=== PATIENT | female | born 2005 | race Caucasian/White ===

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

== ENCOUNTER 2023-01-10 10:21 | Day surgery (SDC) | payer OTHER, SELFPAY ==
--- NOTE | 2023-01-07 09:47 | HO.ANESPROP2 ---
Documented by User: Irene Young NP 01/07/23 09:48 HPI - Anesthesia Eval Consult details Narrative: 17yo F for Right Cystoscopy, Ureteroroscopy, Retro, Laser,with poss stent exchange s/p cysto 12/31/22 with MAC PMFSH Active Problems Active Problems: All Active Problems (Updated 12/31/22 @ 06:[address] MD) Calculus of proximal right ureter (Acute) Depression (Acute) Dysmenorrhea (Acute) Irregular menses (Acute) Refusal of influenza vaccine by provider (Acute) Past Medical History Medical History (Updated 01/09/23 @ 00:01 by Austin Raman) Irregular menses Dysmenorrhea Family History Family History Mother Anxiety Depression PTSD (post-traumatic stress disorder) Family history of problems with anesthesia: No Surgical History Surgical History (Updated 01/10/23 @ 11:20 by Denise Ramirez RN) Hx of cystoscopy History of Problems with Anesthesia: No Social History Social History Household Members: Family Housing: House Do you presently have visiting nurse or other home services: No Alcohol intake: never Patient Tobacco Use Status: Current everyday Tobacco user Tobacco use type: Cigarette Cigarettes Per Day: 1 Smoked in Last 30 Days: Yes Patient Interested in Nicotine Replacement: No Substance Use Type: Marijuana Substance Use Frequency: Daily Are you DNR?: No Advance Directives: No Advance Directives Information Provided: Yes Nutrition Risks: No Nutritional Risk FDLMP: 12/18/22 Cognitive needs: No Hearing needs: No Vision needs: Yes Meds Allergies Allergy/AdvReac Type Severity Reaction Status Date / Time No Known Allergies Allergy Verified 01/10/23 11:20 [No Known Allergies*] Exam Exam Date and Time: January 07, 2023 0947 Pertinent Lab Results Pertinent Lab Results: Laboratory Tests 12/31/22 03:19 WBC 9.0 Hgb 13.2 Hct 38.2 Plt Count 296 Sodium 138 Potassium 3.5 D Chloride 107 Carbon Dioxide 20 L BUN 12 Creatinine 0.74 Assessment and Plan Assessment Anesthesia Assessment: Chart Reviewed Final Anesthetic Review Family History of Problems with Anesthesia: No History of Problems with Anesthesia: No Documented by User: Gabriela Anderson MD 01/10/23 11:48 PMFSH Past Medical History Medical History (Updated 01/09/23 @ 00:01 by Austin Raman) Irregular menses Dysmenorrhea Family History Family History Mother Anxiety Depression PTSD (post-traumatic stress disorder) Surgical History Surgical History (Updated 01/10/23 @ 11:20 by Denise Ramirez RN) Hx of cystoscopy Social History Social History Household Members: Family Housing: House Do you presently have visiting nurse or other home services: No Alcohol intake: never Patient Tobacco Use Status: Current everyday Tobacco user Tobacco use type: Cigarette Cigarettes Per Day: 1 Smoked in Last 30 Days: Yes Patient Interested in Nicotine Replacement: No Substance Use Type: Marijuana Substance Use Frequency: Daily Are you DNR?: No Advance Directives: No Advance Directives Information Provided: Yes Nutrition Risks: No Nutritional Risk FDLMP: 12/18/22 Cognitive needs: No Hearing needs: No Vision needs: Yes Meds Allergies Allergy/AdvReac Type Severity Reaction Status Date / Time No Known Allergies Allergy Verified 01/10/23 11:20 [No Known Allergies*] Exam Airway Mallampati Class: II TM Dist: >3cm Neck ROM: Full Heart: rrr Lungs: cta Assessment and Plan Assessment Anesthesia Assessment: Anesthesia Plan Discussed Final Anesthetic Review NPO: Yes ASA Class: II Final Preanesthetic Review: No Changes in Pt Med Stat, Meds/Allgs Chart Reviewed and Consent Obtained/Reviewed Patient Risk: Intermediate Procedure Risk: Intermediate Anesthetic Plan Anesthetic Plan: GA Disposition: Standard PACU
[2023-01-10] VITALS (13 sets, daily range): BP systolic 104–144; BP diastolic 47–77; PULSE 61–90; RESP 16–20; TEMP 36.4–36.8; O2SAT 98–100; BMI 31.6
--- NOTE | ~2023-01-10 | FL_ITS ---
CLINICAL INDICATION: Right kidney stone. FINDINGS: Technical assistance and equipment were provided by the Department of Radiology during intraoperative fluoroscopy for intraoperative procedure, possibly stent removal. 5, limited fluoroscopic spot images are submitted. A radiologist was not present during the procedure. Initial image demonstrates the tip of a cystoscope to project over the mid lower pelvis. The distal end of a presumed ureteral stent is seen. The ipsilateral distal ureter appears accessed, and contrast is injected, demonstrating no evidence of hydroureter. Subsequent images demonstrate contrast within nondilated ipsilateral collecting system and proximal ureter. Final images demonstrate a sheath to project over the ipsilateral upper quadrant. The images are available for review on PACS. TOTAL FLUOROSCOPY TIME: 35 seconds. CUMULATIVE DOSE: 7.1 mGy FL/FL guidance in OR IMPRESSION: Technical assistance and equipment provided by the Department of Radiology during intraoperative fluoroscopy, as above. Please see operative report for further details.
[2023-01-10 10:51] LABS: UPreg QC Valid YES; Urine Pregnancy NEGATIVE (NEGATIVE)
[2023-01-10] MEDS: Lactated Ringers 1,000 ML 100 ML IVCONT (10:53)
--- NOTE | 2023-01-10 11:55 | MHC.SHP ---
Pre-Procedural Eval Section A Date of Service: 01/10/23 The patient is an INPATIENT: No Changes since office visit: No Cold of Flu in the past 2 weeks, No New Medical Problems, No Changes in Medication and No Patient answered all questions The History & Physical has been completed within 30 days and I have reviewed it.: No Section B Chief Complaint: Calculus of kidney Details of Present Illness: indwelling right ureteric stent with right renal stone Relevant Family History (Specify if Yes): Yes Relevant Social History: None Present Medications: see Short Stay Collaborative assessment Medical History: No relevant PMH History of Previous Operations: Relevant previous surgery/procedure and date(s) Allergies: Allergies Allergy/AdvReac Type Severity Reaction Status Date / Time No Known Allergies Allergy Verified 01/10/23 11:20 [No Known Allergies*] Review of Systems Sugical H&P ROS: Negative: Constitution, Cardiovascular, Respiratory, Neurological, Psychiatric, Hem-Onc, Allergic/Immunologic, Gastrointestinal, Genitourinary, Musculoskeletal, Integumentary, Endocrine and Eyes/Ears/Nose/Throat Exam Surgical H&P Exam: Normal: HEENT, Normal: Heart, Normal: Lungs, Normal: Extremities, Normal: Abdomen, Normal: Skin and Normal: Neurological Plan Diagnosis/Plan: Unchanged ( cystoscopy, will right stent removal, right ureteroscopy with laser lithotripsy) I have reviewed the history and physical and performed a pertinent physical examination on my patient. No changes have occurred unless specified. Time Spent With Patient Time: Total time managing care of this patient today ____ minutes.
--- NOTE | 2023-01-10 13:15 | P.OP_ITS ---
Operative Note Operative Note Date of Service: 01/10/23 Narrative: PreOperative Diagnosis: Right lower pole renal stone with indwelling stent Post Operative Diagnosis: Right lower pole renal stone with indwelling stent Procedure: - cystoscopy, right retrograde - removal right stent - right dilatation of ureteric orifice under fluoroscopy - right ureteroscopy, laser lithotripsy Surgeon: Dr John Barirentos Anesthesia: General Indications for procedure: Had presented a week ago with right UPJ stone. Stent placed for pain management. Here for definitive stone therapy. Procedure: After informed consent was verified patient was brought to the operating placed in supine position. Anesthesia was administered per protocol. Patient was placed in modified dorsal lithotomy position and prepped and draped in a sterile fashion. Safety pause time-out and side of surgery confirmed. Antibiotics confirmed. 22 [place] cystoscope was inserted per urethra. Bladder was normal in its entirety. Both ureteric orifices were in normal position. Stent emerging from right ureteric orifice. The right ureteric orifice was cannulated and a retrograde examination was performed. Filling defects seen in right renal pelvis consistent with known 8 mm stone. A Sensor guidewire was placed up to the level of the renal pelvis under fluoroscopy. The rigid cystoscope was removed and the inner cannula of ureteric access sheath was used under fluoroscopy to dilate the ureteric orifice. The flexible ureteric access sheath was placed and the inner cannula with access wire removed. The digital flexible ureteral scope was placed. The stone was encountered. Using a 272 micron laser fiber the stone was broken into small pieces. The stone ended up moving into the midpole area. Since we were using the flexible ureter can access sheath the sheath was able to be placed on top of the stone fragments and they were able to be removed with suction via the access sheath into the collection bottle. This was continued until the majority of small pieces had been easy removed. A decision was made not to leave a stent. The bladder was emptied. The patient tolerated the procedure well and was extubated in the operating room, and transferred in stable condition to the recovery area. Pathology: Stones Drains: None
[2023-01-10] MEDS: Phenazopyridine HCL 100 MG TABLET PO (13:33)
[2023-01-10] MEDS: oxyCODONE HCl Immed Release 5 MG TABLET PO (13:34)
[2023-01-10] MEDS: Acetaminophen 325 MG TABLET 975 MG PO (13:34)
[2023-01-10] MEDS: fentaNYL citrate/PF 100 MCG/2 ML VIAL 50 MCG IVPUSH ×2 (14:04→14:25)
[2023-01-13 23:13] LABS: Stone Source KIDNEY STONE
== END 2023-01-10 15:00 | disposition home or self-care (01) ==
PROVIDERS: Nurse Practitioner; Visit Provider Urology
PROC: (CPT 52353; principal; 2023-01-10 12:20)
DX: N20.0 Calculus of kidney (principal); Z96.0 Presence of urogenital implants
CPT/HCPCS: 52353; 81025; 82365; 88300; C1758; C1769; J1100; J1885; J1956; J2250; J2405; J3010; Q9967

== ENCOUNTER → 2023-01-10 10:21 | Outpatient (BNV) | payer OTHER, SELFPAY | PROVIDERS: Visit Provider Urology | DX: N20.0 Calculus of kidney (principal) | CPT/HCPCS: 52353; 74420 ==

== ENCOUNTER 2023-07-15 01:50 | Emergency (ER) | payer OTHER, SELFPAY ==
[2023-07-15 02:02] VITALS: BP 121/62; PULSE 67; RESP 16; TEMP 37; O2SAT 98; BMI 29.0
[2023-07-15 05:26] VITALS: BP 117/55; PULSE 68; RESP 18; TEMP 37; O2SAT 100
--- NOTE | 2023-07-15 05:37 | ED_ITS ---
HPI - Eye Problem General Chief complaint: Eye Problems Stated complaint: eye problems Time Seen by Provider: 07/15/23 05:31 Source: patient Mode of arrival: ambulatory Limitations: no limitations History of Present Illness HPI Narrative: 18 yo female with no sig PMH exposed to pink eye then the next day developed drainage and redness to L eye no change in vision loss from her baseline poor eye sight she does wear contact lens is not wearing them now chief complaint: eye pain and eye redness Onset (ago): day(s) (1) Onset description: gradual Duration: constant Location: left eye Eye Symptoms: redness, pain, itching and discharge Place: school Mechanism: other Severity: moderate If Pain, Quality: burning and aching Context: other (sick contact) Associated symptoms: none Treatments Prior to Arrival: none Related Data Previous Rx's Medication Instructions Recorded naproxen 500 mg tablet 500 mg PO BID PRN pain 7 days #14 12/31/22 tabs oxybutynin chloride 5 mg tablet 5 mg PO BID PRN bladder spasms #14 12/31/22 tabs tamsulosin 0.4 mg capsule 0.4 mg PO BEDTIME 14 days #14 caps 12/31/22 naproxen 500 mg tablet 500 mg PO BID PRN pain 7 days #14 01/10/23 tabs phenazopyridine 100 mg tablet 100 mg PO TID PRN Spasm 4 days #12 01/10/23 (Pyridium) tabs tamsulosin 0.4 mg capsule 0.4 mg PO BEDTIME 14 days #14 caps 01/10/23 tramadol 50 mg tablet 50 mg PO Q6H PRN pain (scale score 01/10/23 1-3) #8 tabs ofloxacin 0.3 % eye drops 1 drp ophthalmic (eye) QID 7 days 07/15/23 #5 mL Allergies Allergy/AdvReac Type Severity Reaction Status Date / Time No Known Allergies Allergy Verified 01/10/23 11:20 [No Known Allergies*] Review of Systems Review of Systems: Constitutional : No Fever, No Chills, No Fatigue ENT/Mouth : No sore throat, No Rhinorrhea Eyes: pos Eye Pain, No Swelling, pos Redness Cardiovascular : No Chest Pain, No SOB, No Dyspnea on Exertion Respiratory : No Cough, No Sputum Gastrointestinal : No Nausea, No Vomiting, No Diarrhea, No abdominal Pain Genitourinary : No Dysuria, No Urinary Frequency, No Hematuria, Musculoskeletal : No joint pain, No Myalgias, No Joint Swelling Skin : No Skin Lesions, No rash Neuro : No Weakness, No Numbness, No Dizziness, positive Headache All other systems reviewed and are negative [facility] Past Medical History Attestation statement: The following information was validated with the patient. Source: old records reviewed Medical History Irregular menses Dysmenorrhea Surgical History Hx of cystoscopy Family History Family History Mother Anxiety Depression PTSD (post-traumatic stress disorder) Social History Social History Household Members: Family Housing: House Do you presently have visiting nurse or other home services: No Alcohol intake: never Patient Tobacco Use Status: Current everyday Tobacco user Tobacco use type: Cigarette Cigarettes Per Day: 1 Smoked in Last 30 Days: No Use of substances other than those prescribed or required for medical reasons: No Substance Use Type: Marijuana Advance Directives: No Advance Directives Information Provided: No Patient : No Cognitive needs: No Hearing needs: No Vision needs: Yes Physical Exam Vital Signs: Vital Signs: Last Vital Signs Temp 98.2 F 07/15/23 06:19 Pulse 68 07/15/23 06:19 Resp 18 07/15/23 06:19 BP 117/55 L 07/15/23 06:19 Pulse Ox 100 07/15/23 06:19 O2 Del Method Room Air 07/15/23 06:19 BMI result Body Mass Index 29.0 Appearance: Alert. Oriented X3. No acute distress. Eyes: Pupils equal, round and reactive to light. no change in vision from baseline, L eye injected with injected sclera and watery discharge no preseptal cellulitis, with fluorscein linear inferior to the iris abrasion noted ENT: Pharynx normal. Neck: Normal inspection. Neck supple. CVS: Pulses normal. Respiratory: No respiratory distress. Abdomen: Soft and nontender. Skin: Skin warm and dry. Normal skin color. Extremities: No lower extremity edema. Neuro: Oriented X 3. No motor deficit. No sensory deficit. Medications Administered Discontinued Medications Generic Name Dose Route Start Last Admin Trade Name Freq PRN Reason Stop Dose Admin Fluorescein Sodium 1 strip 07/15/23 05:49 07/15/23 06:00 Fluorescein Sodium Strip EYE-LEFT 07/15/23 05:50 1 strip ONCE ONE Administration Tetracaine HCl 1 drop 07/15/23 05:49 07/15/23 06:00 Tetracaine Hcl/Pf 0.5% Oph Georgie 4 Ml Drops EYE-LEFT 07/15/23 05:50 1 drop ONCE ONE Administration Medical Decision Making Medical Decision Making MDM Narrative: 18 yo female not toxic here with c/o L eye redness drainage and irritation following exposure to pink eye at this time will start on ofloxacin and stop lens wear she has no vision changes. instruct her to see eye doctor and given return precautions Differential Diagnosis Differential Diagnoses: The differential diagnosis associated with the presentation includes conjunctivitis, FB Prescription Management I considered prescription management with: Antibiotic and Other Discharge Plan Discharge Clinical Impression: Bacterial conjunctivitis, Corneal abrasion Patient Disposition: Home, Self-Care Instructions: Corneal Abrasion (DC), Conjunctivitis (ED) Additional Instructions: no contact lens for 1 week return for worsening pain, vision loss, or any other concerns. please follow up with your eye doctor Prescriptions: New ofloxacin 0.3 % drops 1 drp ophthalmic (eye) QID 7 Days Qty: 5 0RF No Action tramadol 50 mg tablet 50 mg PO Q6H PRN (Reason: pain (scale score 1-3)) Qty: 8 0RF tamsulosin 0.4 mg capsule 0.4 mg PO BEDTIME 14 Days Qty: 14 0RF phenazopyridine [Pyridium] 100 mg tablet 100 mg PO TID PRN (Reason: Spasm) 4 Days Qty: 12 0RF naproxen 500 mg tablet 500 mg PO BID PRN (Reason: pain) 7 Days Qty: 14 0RF tamsulosin 0.4 mg capsule 0.4 mg PO BEDTIME 14 Days Qty: 14 0RF oxybutynin chloride 5 mg tablet 5 mg PO BID PRN (Reason: bladder spasms) Qty: 14 0RF naproxen 500 mg tablet 500 mg PO BID PRN (Reason: pain) 7 Days Qty: 14 0RF Stand Alone Forms: Work/School Release Interventions: ED Discharge Assessment Last Done: 07/15/23 06:19 Discharge Date/Time: 07/15/23 06:00
[2023-07-15] MEDS: Fluorescein Sodium STRIP 1 STRIP EYE-LEFT (06:00)
[2023-07-15] MEDS: Tetracaine HCl/PF 0.5% Oph Sol 4 ML DROPS 1 DROP EYE-LEFT (06:00)
[2023-07-15 06:19] VITALS: BP 117/55; PULSE 68; RESP 18; TEMP 36.8; O2SAT 100
== END 2023-07-15 06:00 | disposition home or self-care (01) ==
PROVIDERS: Emergency Provider Emergency Medicine
DX: S05.02XA Injury of conjunctiva and corneal abrasion without foreign body, left eye, initial encounter (principal); H10.9 Unspecified conjunctivitis; X58.XXXA Exposure to other specified factors, initial encounter; Y93.9 Activity, unspecified; Y92.9 Unspecified place or not applicable; Y99.9 Unspecified external cause status
CPT/HCPCS: 99283; 99284

== ENCOUNTER 2023-12-30 13:55 | Emergency (ER) | payer OTHER, SELFPAY ==
[2023-12-30] VITALS (7 sets, daily range): BP systolic 115–123; BP diastolic 59–75; PULSE 78–109; RESP 14–20; TEMP 37.1–39.4; O2SAT 96–100; BMI 27.3
--- NOTE | ~2023-12-30 | CT_ITS ---
EXAMINATION: CT ABDOMEN AND PELVIS WITHOUT CONTRAST CLINICAL INFORMATION: Question stone COMPARISON: CT abdomen and pelvis 12/31/2022 TECHNIQUE: Multidetector volumetric imaging was performed from the superior aspect of the liver through the pubic symphysis. Sagittal and coronal reformatted images were obtained on the technologist's workstation. This CT examination was performed using dose optimization techniques as appropriate, variously including the following: *Automated exposure control *Adjustment of mA and/or kV according to patient size (this includes techniques or standardized protocols for targeted exams where dose is matched to indication/reason for exam; i.e. extremities or head) *Use of iterative reconstruction technique DLP: 589 mGy-cm FINDINGS: LUNG BASES: Calcified granuloma in the left lung base. ABDOMINAL AND PELVIC WALL: Unremarkable. LIVER AND BILIARY TREE: Unremarkable. GALLBLADDER: Sludge or noncalcified stones layering in the gallbladder. No pericholecystic inflammatory change to suggest acute cholecystitis. PANCREAS: Unremarkable. SPLEEN: Unremarkable. ADRENAL GLANDS: Unremarkable. KIDNEYS AND URETERS: Multiple new nonobstructing right renal stones measuring up to 5 mm in the right upper pole. There is right renal perinephric fat stranding and mild right hydroureter. The ureter was not definitively discerned throughout its entire course limiting assessment however within limitations no ureteral stone is definitively identified. GASTROINTESTINAL TRACT: Colonic diverticulosis. Question of minimal fat stranding in the left lower quadrant adjacent to the descending colon, equivocal for a mild diverticulitis. No perforation or abscess. Appendix is normal in caliber. VASCULAR: Unremarkable. LYMPH NODES/PERITONEUM: No lymphadenopathy. FREE FLUID: None. BLADDER: Tiny mural calcification in the dome of the bladder unchanged. PELVIC VISCERA: Unremarkable. OSSEOUS STRUCTURES: Unremarkable. CT/CT abdomen pelvis wo IV con IMPRESSION: 1. Multiple new nonobstructing right renal stones measuring up to 5 mm in the right upper pole. There is right renal perinephric fat stranding and mild right hydroureter. The ureter was not definitively discerned throughout its entire course limiting assessment though within limitations no ureteral stone is definitively identified, however given the constellation of findings differential considerations could include a nonvisualized obstructing stone, recently passed ureteral stone or ascending urinary tract infection. 2. Colonic diverticulosis. Question of minimal fat stranding in the left lower quadrant adjacent to the descending colon, equivocal for a mild diverticulitis, recommend correlation with clinical symptoms. No perforation or abscess. 3. Sludge or noncalcified stones layering in the gallbladder. No pericholecystic inflammatory change to suggest acute cholecystitis. Electronically signed by: Maggy Wilson MD 12/30/2023 04:24 PM EDT RP
--- NOTE | ~2023-12-30 | XR_ITS ---
EXAMINATION: XR CHEST CLINICAL INFORMATION: Cough COMPARISON: None available. TECHNIQUE: 2 views of the chest were obtained. FINDINGS: The cardiomediastinal silhouette is within normal limits. The lungs are well expanded. There is no focal consolidation, edema, or effusion. No pneumothorax. No acute osseous abnormality. XR/XR chest 2V IMPRESSION: No evidence of acute pulmonary process Electronically signed by: Rodrigue Rubio MD 12/30/2023 03:58 PM EDT RP
--- NOTE | 2023-12-30 14:08 | ED.GENADULT ---
HPI - General Adult General Chief complaint: Urogenital-Female Stated complaint: Kidney infection/fever Time Seen by Provider: 12/30/23 14:39 Related Data Previous Rx's ?Medication ?Instructions ?Recorded naproxen 500 mg tablet 500 mg PO BID PRN pain 7 days #14 12/31/22 tabs oxybutynin chloride 5 mg tablet 5 mg PO BID PRN bladder spasms #14 12/31/22 tabs tamsulosin 0.4 mg capsule 0.4 mg PO BEDTIME 14 days #14 caps 12/31/22 naproxen 500 mg tablet 500 mg PO BID PRN pain 7 days #14 01/10/23 tabs phenazopyridine 100 mg tablet 100 mg PO TID PRN Spasm 4 days #12 01/10/23 (Pyridium) tabs tamsulosin 0.4 mg capsule 0.4 mg PO BEDTIME 14 days #14 caps 01/10/23 tramadol 50 mg tablet 50 mg PO Q6H PRN pain (scale score 01/10/23 1-3) #8 tabs ofloxacin 0.3 % eye drops 1 drp ophthalmic (eye) QID 7 days 07/15/23 #5 mL Allergies Allergy/AdvReac Type Severity Reaction Status Date / Time No Known Allergies Allergy Verified 12/30/23 14:12 [No Known Allergies*] [facility] Past Medical History Medical History Irregular menses Dysmenorrhea Surgical History Hx of cystoscopy Family History Family History Mother Anxiety Depression PTSD (post-traumatic stress disorder) Social History Social History Household Members: Family Housing: House Do you presently have visiting nurse or other home services: No Alcohol intake: never Patient Tobacco Use Status: Current everyday Tobacco user Tobacco use type: Cigarette Cigarettes Per Day: 1 Substance Use Type: Marijuana Cognitive needs: No Hearing needs: No Vision needs: Yes Physical Exam ED Vital Signs: Vital Signs - 24 hr 12/30/23 14:07 Temperature 103.0 F H Pulse Rate 109 H Respiratory Rate 16 Blood Pressure 123/75 Pulse Oximetry 100 Oxygen Delivery Method Room Air BMI result Body Mass Index 27.3 Course Course Course Narrative: This is a Rapid Medical Examination (RME) performed by Dia Strong PA-C in triage. Full HPI, ROS, assessment and treatment plan per primary provider in the Main ED. 18 yo female hx of ureteral calculi here for eval of dysuria and hematuria x2 days. assoc headache and fevers at home. taking tylenol, last dose at 0500 this morning., was seen at for same yesterday. diagnosed w/ UTI however there was concern for kidney infection. prescribed keflex. has not picked up the antibiotic yet. denies abd pain or flank pain. no n/v. + febrile to 103F in triage Plan: labs, UA. motrin given. Reevaluation(s) Reevaluation #1: Please refer to Dr. Matson's completed note regarding patient's visit on 12/30/2023. Medications Administered Discontinued Medications Generic Name Dose Route Start Last Admin Trade Name Freq PRN Reason Stop Dose Admin Ibuprofen 600 mg 12/30/23 14:12 12/30/23 14:14 Ibuprofen 600 Mg Tablet PO 12/30/23 14:13 600 mg ONCE ONE Administration Medical Decision Making Lab Data 12/30/23 14:30 12/30/23 14:30 Labs: Lab Results 12/30/23 12/30/23 Range/Units 14:23 14:30 WBC 16.3 H (4.8-10.8) X10*3/uL RBC 4.71 (4.20-5.50) X10*6/uL Hgb 14.1 (12.0-16.0) g/dl Hct 40.9 (37.0-47.0) % MCV 86.8 (80.0-98.0) fL MCH 29.9 (27.0-33.0) pg MCHC 34.5 (31.0-35.0) g/dl RDW 11.6 (11.0-16.0) % Plt Count 175 D (160-400) X10*3/uL MPV 9.5 (9.4-12.3) fL Urine Color Yellow Urine Appearance Cloudy Urine pH 6.0 (5.0-9.0) Ur Specific [place] 1.020 (1.005-1.025) Urine Protein 30 (1+) H (Neg-Trace) mg/dL Urine Glucose (UA) Negative (Negative) mg/dL Urine Ketones 40 (Negative) mg/dL Urine Blood Small (1+) H (Negative) Urine Nitrite Negative (Negative) Ur Leukocyte Esterase Small (1+) H (Negative) Urine Test NEGATIVE (NEGATIVE) Discharge Plan Discharge Prescriptions: No Action tramadol 50 mg tablet 50 mg PO Q6H PRN (Reason: pain (scale score 1-3)) Qty: 8 0RF tamsulosin 0.4 mg capsule 0.4 mg PO BEDTIME 14 Days Qty: 14 0RF phenazopyridine [Pyridium] 100 mg tablet 100 mg PO TID PRN (Reason: Spasm) 4 Days Qty: 12 0RF naproxen 500 mg tablet 500 mg PO BID PRN (Reason: pain) 7 Days Qty: 14 0RF ofloxacin 0.3 % drops 1 drp ophthalmic (eye) QID 7 Days Qty: 5 0RF tamsulosin 0.4 mg capsule 0.4 mg PO BEDTIME 14 Days Qty: 14 0RF oxybutynin chloride 5 mg tablet 5 mg PO BID PRN (Reason: bladder spasms) Qty: 14 0RF naproxen 500 mg tablet 500 mg PO BID PRN (Reason: pain) 7 Days Qty: 14 0RF Print Language: Bermudian
[2023-12-30] MEDS: Ibuprofen 600 MG TABLET PO (14:14)
[2023-12-30 14:40] LABS: Basophils Percent Auto 0.2 % (0-2); Eosinophils Percent Auto 0.1 % (0-4); Hematocrit 40.9 % (37.0-47.0); Hemoglobin 14.1 g/dl (12.0-16.0); Imm Gran Abs Auto 0.06 X10*3/uL (0.00-0.03); Imm Gran Pct Auto 0.4 % (0.0-0.4); Lymphocytes Absolute Auto 1.9 X10*3/uL (1.2-4.9); Lymphocytes Percent Auto 11.4 % (20-40); Mean Corpuscular HGB Conc 34.5 g/dl (31.0-35.0); Mean Corpuscular Hemoglobin 29.9 pg (27.0-33.0); Mean Corpuscular Volume 86.8 fL (80.0-98.0); Mean Platelet Volume 9.5 fL (9.4-12.3); Monocytes Absolute Auto 1.8 X10*3/uL (0.1-1.2); Monocytes Percent Auto 10.8 % (2-11); Neutrophils Absolute Auto 12.6 x10*3/uL (2.0-8.3); Neutrophils Percent Auto 77.1 % (45-73); Platelet Count 175 X10*3/uL (160-400); Red Blood Count 4.71 X10*6/uL (4.20-5.50); Red Cell Distribution Width 11.6 % (11.0-16.0); SCAN SMEAR FLAG 1; White Blood Count 16.3 X10*3/uL (4.8-10.8)
[2023-12-30 14:42] LABS: UPreg QC Valid YES
[2023-12-30 14:43] LABS: Urine Pregnancy NEGATIVE (NEGATIVE)
[2023-12-30 14:44] LABS: Appearance Urine Cloudy; Color Urine Yellow; Glucose Urine UA Negative (Negative); Leukocyte Esterase Urine Small (1+) (Negative); Nitrite Urine Negative (Negative); UMIC TRIGGER UACC YES; Urine Blood Small (1+) (Negative); Urine Ketones 40 mg/dL (Negative); Urine Protein 30 (1+) mg/dL (Neg-Trace)
--- NOTE | 2023-12-30 14:44 | ED.FEMALEGU ---
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 DENIES ANY VOMITING MD elicited complaint: dysuria and UTI Onset (ago): day(s) (2) Severity: mild Female Urogenital Radiation: Non-Radiating Consistency: constant Vaginal discharge: none Related Data Previous Rx's ?Medication ?Instructions ?Recorded naproxen 500 mg tablet 500 mg PO BID PRN pain 7 days #14 12/31/22 tabs oxybutynin chloride 5 mg tablet 5 mg PO BID PRN bladder spasms #14 12/31/22 tabs tamsulosin 0.4 mg capsule 0.4 mg PO BEDTIME 14 days #14 caps 12/31/22 naproxen 500 mg tablet 500 mg PO BID PRN pain 7 days #14 01/10/23 tabs phenazopyridine 100 mg tablet 100 mg PO TID PRN Spasm 4 days #12 01/10/23 (Pyridium) tabs tamsulosin 0.4 mg capsule 0.4 mg PO BEDTIME 14 days #14 caps 01/10/23 tramadol 50 mg tablet 50 mg PO Q6H PRN pain (scale score 01/10/23 1-3) #8 tabs ofloxacin 0.3 % eye drops 1 drp ophthalmic (eye) QID 7 days 07/15/23 #5 mL acetaminophen 500 mg tablet 1,000 mg (2 x 500 mg) PO Q6H PRN 12/30/23 (Tylenol Extra Strength) fever or pain #20 tabs ibuprofen 400 mg tablet 400 mg PO TID PRN fever or pain 12/30/23 #30 tabs ondansetron 4 mg disintegrating 4 mg PO Q6-8H PRN nausea and 12/30/23 tablet vomiting #14 tabs Allergies Allergy/AdvReac Type Severity Reaction Status Date / Time No Known Allergies Allergy Verified 12/30/23 14:12 [No Known Allergies*] Review of Systems Constitutional: Constitutional: Reports malaise and Reports weakness ENT: Reports system reviewed and no additional complaints, except as documented Respiratory: Respiratory: Reports no additional respiratory complaints Gastrointestinal: Gastrointestinal: Reports no additional gastrointestinal complaints Neurologic: Reports weakness [facility] Past Medical History [facility] Narrative: HISTORY OF KIDNEY STONE Source: unable to obtain Medical History Irregular menses Dysmenorrhea Surgical History Hx of cystoscopy Family History Family History Mother Anxiety Depression PTSD (post-traumatic stress disorder) Social History Social History Household Members: Family Housing: House Do you presently have visiting nurse or other home services: No Alcohol intake: current Alcohol intake frequency: holidays/special occasions only Patient Tobacco Use Status: Current everyday Tobacco user Tobacco use type: Cigarette Cigarettes Per Day: 1 Smoked in Last 30 Days: No Use of substances other than those prescribed or required for medical reasons: Yes Substance Use Type: Marijuana Substance Use Frequency: Daily Advance Directives: No Advance Directives Information Provided: No Patient : No Cognitive needs: No Hearing needs: No Vision needs: Yes Physical Exam Vital Signs: Vital Signs: Last Vital Signs Temp 99.0 F 12/30/23 16:43 Pulse 78 12/30/23 16:43 Resp 20 12/30/23 16:43 BP 115/62 12/30/23 16:43 Pulse Ox 97 12/30/23 16:43 O2 Del Method Room Air 12/30/23 16:43 BMI result Body Mass Index 27.3 SHE LOOKS WELL SHE HAS NOT TAKE TOXIC Const: General: comfortable, no acute distress and well developed Orientation/consciousness: patient oriented x3 HEENT: Head: Yes normal to inspection General nose exam: Normal external nose present Face and sinus: Yes normal facial exam Neck: Neck: Yes normal visual inspection and Yes full ROM Chest: Chest palpation & inspection: normal inspection of the chest Resp: Effort & Inspection: normal respiratory effort Auscultation: clear to auscultation bilaterally Cardio: Jugular venous distension: no JVD Rate: regular rate Rhythm: regular rhythm GI: Inspection: Yes normal to inspection Palpation (GI): Soft to palpation, not firm and nontender Auscultation: normal bowel sounds Skin: General skin exam: no rashes or lesions noted, elasticity normal and turgor normal Lesions: no lesions Rashes: no rashes Neuro: General: patient oriented x3 Cranial nerves: Yes CN's II-XII intact bilaterally Course Reevaluation(s) Reevaluation #1: SIGNED OUT TO DR ARNOLD CT PENDING Additional Reevaluation(s): 12/30/2023 at 19:00 hours,Dr. Jessee Arnold's note: I assumed care of this patient from my colleague, Dr. Matson at 16:00 hours. The patient is a 18-year-old woman who presented to the emergency department for evaluation of 2 days of stabbing left suprapubic pain with pain radiating to her left flank associated with fever and chills. Patient also had frequency and dysuria. She had a temperature as high as 101.5 degrees. She had associated nausea with no vomiting. Patient [place] [id number] your urinalysis was consistent with a urinary tract infection. She does have a history of kidney stones on the right she states that the stones were broken up by our urologist, Dr. Barrientos proximal 1 year ago. She states the pain that she was having on the left is different than the pain that she had secondary to her right kidney stone. Patient was treated with ceftriaxone 1 g IV, ibuprofen 600 mg orally and normal saline x1 L and she was feeling better. On my examination the patient has suprapubic tenderness, left lower quadrant tenderness but no CVA tenderness. She does not appear to be septic or toxic. At this time I do not think that she has pyelonephritis and I think that the CT scanning of right-sided kidney stones with inflammation of the right kidney are not due to an infectious process and are probably chronic. Patient was advised to follow-up with Dr. Barrientos for re-evaluation especially if she gets right-sided pain patient. Patient was seen in urgent care clinic prior to coming to the emergency department and was prescribed cephalexin 500 mg b.i.d. for 10 days and I told her to stay on this medication. She was prescribed ibuprofen 400 mg 3 times a day, Tylenol 1000 mg 3 times a day and Zofran 4 mg ODT every 6-8 hours as needed for nausea and vomiting. Patient was given a work note from the urgent care clinic as well. She was discharged home with printed and verbal instructions and advised to return to the emergency department for symptoms got worse or stopped any new symptoms that are concerning to her. Medications Administered Discontinued Medications Generic Name Dose Route Start Last Admin Trade Name Ashley PRN Reason Stop Dose Admin Sodium Chloride 1,000 mls @ 999 mls/hr 12/30/23 14:45 12/30/23 15:02 Ns IVCONT 12/30/23 15:45 999 mls/hr .Q1H1M JESSICA Administration Ceftriaxone Sodium 1 gm/ 50 mls @ 100 mls/hr 12/30/23 14:47 12/30/23 15:02 Sodium Chloride IV 12/30/23 15:16 100 mls/hr ONCE ONE Administration Ibuprofen 600 mg 12/30/23 14:12 12/30/23 14:14 Ibuprofen 600 Mg Tablet PO 12/30/23 14:13 600 mg ONCE ONE Administration Medical Decision Making Medical Decision Making [facility] Narrative: PATIENT PRESENTED TO THE EMERGENCY DEPARTMENT WITH DYSURIA FEVER POSSIBLE UTI WILL GET LABS ADMINISTER FLUID REASSESS Differential Diagnosis Differential Diagnoses: The differential diagnosis associated with the presentation includes UTI/KIDNEY STONE/UROSEPSIS Lab Data [facility] Lab Attestation statement: I reviewed the patient's lab results. 12/30/23 14:30 12/30/23 14:30 Labs: Lab Results 12/30/23 12/30/23 Range/Units 14:23 14:30 WBC 16.3 H (4.8-10.8) X10*3/uL RBC 4.71 (4.20-5.50) X10*6/uL Hgb 14.1 (12.0-16.0) g/dl Hct 40.9 (37.0-47.0) % MCV 86.8 (80.0-98.0) fL MCH 29.9 (27.0-33.0) pg MCHC 34.5 (31.0-35.0) g/dl RDW 11.6 (11.0-16.0) % Plt Count 175 D (160-400) X10*3/uL MPV 9.5 (9.4-12.3) fL Immature Gran % (Auto) 0.4 (0.0-0.4) % Neut % (Auto) 77.1 H (45-73) % Lymph % (Auto) 11.4 L (20-40) % [place] % (Auto) 10.8 (2-11) % Eos % (Auto) 0.1 (0-4) % Baso % (Auto) 0.2 (0-2) % Lymph # (Auto) 1.9 (1.2-4.9) X10*3/uL [place] # (Auto) 1.8 H (0.1-1.2) X10*3/uL Eos # (Auto) 0.0 (0.0-0.4) X10*3/uL Baso # (Auto) 0.0 (0.0-0.2) X10*3/uL Abs Immat Gran (auto) 0.06 H (0.00-0.03) X10*3/uL Absolute Neuts (auto) 12.6 H (2.0-8.3) x10*3/uL Absolute Nucleated RBC 0.000 (0.0-0.012) X10*3/uL Nucleated RBC % (auto) 0.0 (0.0-0.2) /100WBC Sodium 133 L (135-145) mmol/L Potassium 3.9 (3.3-5.1) mmol/L Chloride 98 (96-108) mmol/L Carbon Dioxide 26 (22-29) mmol/L Anion Gap 13 (12-20) BUN 7 L (9-16) mg/dL Creatinine 0.73 (0.5-1.4) mg/dL Estim Creat Clear Calc 119.6 Estimated GFR > 60 Random Glucose 94 (60-115) mg/dL Lactic Acid 1.1 (0.5-2.0) mmol/L Calcium 10.0 (8.4-10.2) mg/dL Magnesium 2.1 (1.6-2.6) mg/dL Total Bilirubin 0.8 (0.0-1.0) mg/dL AST 16 (5-31) U/L ALT 11 (0-31) U/L Alkaline Phosphatase 72 (39-117) U/L Total Protein 8.4 H (6.5-8.0) g/dL Albumin 4.5 (3.5-5.0) g/dL Urine Color Yellow Urine Appearance Cloudy Urine pH 6.0 (5.0-9.0) Ur Specific [place] 1.020 (1.005-1.025) Urine Protein 30 (1+) H (Neg-Trace) mg/dL Urine Glucose (UA) Negative (Negative) mg/dL Urine Ketones 40 (Negative) mg/dL Urine Blood Small (1+) H (Negative) Urine Nitrite Negative (Negative) Ur Leukocyte Esterase Small (1+) H (Negative) Urine RBC 3-5 H (0-2) /HPF Urine WBC 21-50 H (0-5) /HPF Ur Squamous Epith Cells 6-10 (0-2) /HPF Urine Bacteria 2+ (None Seen) Hyaline Casts 0-2 (0-2) /LPF Urine Test NEGATIVE (NEGATIVE) Influenza Type A (PCR) NEGATIVE (Negative) Influenza Type B (PCR) NEGATIVE (Negative) RSV RNA Qual (PCR) NEGATIVE (Negative) SARS-CoV-2 RNA (RT-PCR) NEGATIVE (Negative) Radiology Impression Discussion of test interpretation with radiology: I have reviewed the radiologist's reading. Radiologist Impression: CT abdomen pelvis wo IV con IMPRESSION: 1. Multiple new nonobstructing right renal stones measuring up to 5 mm in the right upper pole. There is right renal perinephric fat stranding and mild right hydroureter. The ureter was not definitively discerned throughout its entire course limiting assessment though within limitations no ureteral stone is definitively identified, however given the constellation of findings differential considerations could include a nonvisualized obstructing stone, recently passed ureteral stone or ascending urinary tract infection. 2. Colonic diverticulosis. Question of minimal fat stranding in the left lower quadrant adjacent to the descending colon, equivocal for a mild diverticulitis, recommend correlation with clinical symptoms. No perforation or abscess. 3. Sludge or noncalcified stones layering in the gallbladder. No pericholecystic inflammatory change to suggest acute cholecystitis. Electronically signed by: Maggy Wilson MD 12/30/2023 04:24 PM EDT Dictated By: Maggy Wilson MD Prescription Management I considered prescription management with: Pain Medication and Other (Antiemetics) Chronic Conditions Patient?s care impacted by: Other (Kidney stone) Discharge Plan Discharge Clinical Impression: Fever, UTI (urinary tract infection) Patient Disposition: Home, Self-Care Additional Instructions: Your CT scan revealed no abnormalities on your left kidney which is reassuring. If you get severe right-sided pain in your back lower abdomen then you could be passing a kidney stone in you would need to follow-up with Dr. Barrientos or return to the emergency department if he get these symptoms. There is slight swelling of your right kidney but I do not think that this is the cause of your fever or your pain Your symptoms are consistent with a bladder infection infection which may be involving your left kidney. There were kidney stones in your left kidney which is reassuring. Take the Keflex (cephalexin) 500 mg every 12 hours as prescribed by the urgent care clinic. Take ibuprofen 200 mg pills, 2 pills every 6 hours as needed for pain or fever. Take Tylenol (acetaminophen) 500 mg pills, 2 pills every 6 hours as needed for pain or fever. Take Zofran ODT 4 mg pills, 1 pill dissolved in your mouth every 8 hours as needed for nausea and vomiting. Follow-up with your doctor in 2 days. Please return to the emergency department if your symptoms get worse or if you develop any symptoms that are concerning to you. Prescriptions: New acetaminophen [Tylenol Extra Strength] 500 mg tablet 1,000 mg PO Q6H PRN (Reason: fever or pain) Qty: 20 0RF ibuprofen 400 mg tablet 400 mg PO TID PRN (Reason: fever or pain) Qty: 30 0RF ondansetron 4 mg tablet,disintegrating 4 mg PO Q6-8H PRN (Reason: nausea and vomiting) Qty: 14 0RF No Action tramadol 50 mg tablet 50 mg PO Q6H PRN (Reason: pain (scale score 1-3)) Qty: 8 0RF tamsulosin 0.4 mg capsule 0.4 mg PO BEDTIME 14 Days Qty: 14 0RF phenazopyridine [Pyridium] 100 mg tablet 100 mg PO TID PRN (Reason: Spasm) 4 Days Qty: 12 0RF naproxen 500 mg tablet 500 mg PO BID PRN (Reason: pain) 7 Days Qty: 14 0RF ofloxacin 0.3 % drops 1 drp ophthalmic (eye) QID 7 Days Qty: 5 0RF tamsulosin 0.4 mg capsule 0.4 mg PO BEDTIME 14 Days Qty: 14 0RF oxybutynin chloride 5 mg tablet 5 mg PO BID PRN (Reason: bladder spasms) Qty: 14 0RF naproxen 500 mg tablet 500 mg PO BID PRN (Reason: pain) 7 Days Qty: 14 0RF Referrals: John Barrientos MD [Physician] - 2 weeks (Urinary tract infection with left-sided pain, multiple right-sided kidney stones with hydronephrosis, needs follow up) Print Language: Polish
[2023-12-30 15:01] LABS: Bacteria Urine 2+ (None Seen); Hyaline Casts Urine 0-2 /LPF (0-2); UACC Culture Trigger YES; WBC Urine 21-50 /HPF (0-5)
[2023-12-30] MEDS: 0.9 % Sodium Chloride 1,000 ML 999 ML IVCONT (15:02)
[2023-12-30] MEDS: cefTRIAXone sodium 1 GM in 0.9 % Sodium Chloride 50 ML IV (15:02)
[2023-12-30 15:07] LABS: Lactic Acid 1.1 mmol/L (0.5-2.0)
[2023-12-30 15:09] LABS: Alanine Aminotransferase 11 U/L (0-31); Albumin Level 4.5 g/dL (3.5-5.0); Alkaline Phosphatase 72 U/L (39-117); Anion Gap 13 (12-20); Aspartate Amino Transferase 16 U/L (5-31); Bilirubin Total 0.8 mg/dL (0.0-1.0); Blood Urea Nitrogen 7 mg/dL (9-16); Carbon Dioxide 26 mmol/L (22-29); Chloride 98 mmol/L (96-108); Creatinine Clr Calc Pharmacy 119.6; Estimated Glomerular Filt Rate > 60; Glucose Random 94 mg/dL (60-115); Magnesium 2.1 mg/dL (1.6-2.6); Potassium 3.9 mmol/L (3.3-5.1); Sodium 133 mmol/L (135-145); Total Protein 8.4 g/dL (6.5-8.0)
[2023-12-30 15:20] LABS: Influenza A PCR NEGATIVE (Negative); Influenza B PCR NEGATIVE (Negative); Resp Syncy Virus RNA Qual PCR NEGATIVE (Negative); SARS COV2 PCR INHOUSE NEGATIVE (Negative)
[2023-12-30 15:24] LABS: MANUAL DIFF FLAG NO
== END 2023-12-30 19:15 | disposition home or self-care (01) ==
PROVIDERS: Physician Assistant Medical; Emergency Provider Emergency Medicine Emergency Medical Services
DX: R50.9 Fever, unspecified (principal); N39.0 Urinary tract infection, site not specified; B95.8 Unspecified staphylococcus as the cause of diseases classified elsewhere; F17.210 Nicotine dependence, cigarettes, uncomplicated; F12.90 Cannabis use, unspecified, uncomplicated; Z03.818 Encounter for observation for suspected exposure to other biological agents ruled out
CPT/HCPCS: 0241U; 36415; 71046; 74176; 80053; 81001; 81025; 83605; 83735; 85025; 87040; 87086; 87088; 87186; 96365; 96366; 99284; 99285; J0696

== ENCOUNTER 2024-01-05 10:47 | Outpatient (AMB) | payer OTHER, SELFPAY ==
--- NOTE | 2024-01-05 11:18 | MHC.OFFVIS ---
Intake Visit Reasons: nephrolithiasis with mild hydroureter Intake Note: Patient is present for [facility] Follow up Urology Med: None Antibiotic Allergy: None Blood Thinner: None Patient was at [facility] 12/29 for Kidney stones/Hydronephrosis/UTI Patient was treated with Macrobid Mulitple stones was seen on imaging and Hydronephrosis Accompanied by: Self / Same As Patient Allergies No Known Allergies [No Known Allergies*] Allergy (Verified 01/05/24 11:20) HPI Comments Details: Dodie is a pleasant female. She is seen for the following urologic conditions - nephrolithiasis Recent presentation with pyelonephritis Three-month follow-up renal ultrasound nurse-practitioner Microbiology reviewed - Staphylococcus saprophyticus Bactrim sensitive Prescription provided Nephrolithiasis Initial intervention 01/19/2023 Recent re presentation with elevated white count Imaging - 12/23 Multiple new nonobstructing right renal stones measuring up to 5 mm in the right upper pole. There is right renal perinephric fat stranding and mild right hydroureter. The ureter was not definitively discerned throughout its entire course limiting assessment however within limitations no ureteral stone is definitively identified [facility] Medical History Irregular menses Dysmenorrhea Surgical History Hx of cystoscopy Family History Mother Anxiety Depression PTSD (post-traumatic stress disorder) Social History Household Members: Family Both parents involved: No Housing: House Do you presently have visiting nurse or other home services: No Alcohol intake: current Alcohol intake frequency: holidays/special occasions only Patient Tobacco Use Status: Current everyday Tobacco user Tobacco use type: Cigarette Cigarettes Per Day: 1 Substance Use Type: Marijuana Cognitive needs: No Hearing needs: No Vision needs: Yes Review of Systems Const Denies chills and Denies fever(s) Card Reports no additional complaints and Denies syncope Resp Denies cough GI Denies abdominal pain and Denies heartburn Reports as per HPI and Denies change in libido Neuro Denies syncope Psych Denies change in libido Endo Denies change in libido Physical Exam Const General: cooperative, healthy appearing, comfortable and no acute distress Orientation/consciousness: patient oriented x3 HEENT Face and sinus: Yes normal facial exam Mouth: moist mucous membranes Neck Neck: Yes normal visual inspection, Yes full ROM and Yes trachea midline Chest Chest palpation & inspection: normal inspection of the chest Resp Effort & Inspection: normal respiratory effort, able to speak in complete sentences and no respiratory distress GI Inspection: Yes normal to inspection Back/Spine/Pelvis Cervical Spine: normal cervical lordosis Thoracic/Lumbar Spine: thoracic and lumbar spine normal to inspection Skin General skin exam: no rashes or lesions noted Neuro General: patient oriented x3, gait normal, tone normal and moves all extremities Extrem General: Yes normal to inspection and Yes capillary refill normal Assessment & Plan Assessment & Plan (1) Complicated urinary tract infection: Code(s): N39.0 - Urinary tract infection, site not specified Category: Medical Plan Three-month follow-up renal ultrasound Orders: Orders US renal BI 3 Months N20.1 - Calculus of ureter Medications: New sulfamethoxazole-trimethoprim 800-160 mg (Bactrim DS) 1 tab PO BID 14 days 28 tabs 0RF N20.1 - Calculus of ureter, N39.0 - Urinary tract infection, site not specified Patient Instructions: Imaging studies, laboratory and physical exam results were discussed and reviewed in detail. No major barriers to patient understanding were identified. An opportunity to ask questions regarding the treatment plan was provided. All questions were answered. The patient expressed understanding and agreement with the above treatment plan. The patient is aware they should contact our office by phone for worsening of their current condition or the appearance of new urologic symptoms. Compliance is encouraged with any medications and followup testing that is ordered. It is a privilege to participate in the urologic care of your patient. If you have any questions or concerns regarding treatment for the above conditions, or other urologic issues, please do not hesitate to contact me. The office telephone contact is [phone]. This note is constructed using voice recognition software. While every effort has been made to ensure accuracy catering coordinator errors may have been included. Yours sincerely, Dr John Barrientos MD, [facility] - Urology Providers of Expert, Compassionate Care for the Genitourinary System Coding Level of Care Code Est Pt Level 4 (17432) Diagnoses Complicated urinary tract infection N39.0
== END 2024-01-05 11:48 | disposition home or self-care (01) ==
PROVIDERS: Visit Provider Urology
DX: N39.0 Urinary tract infection, site not specified (principal)
CPT/HCPCS: 99214

== ENCOUNTER → 2024-01-05 10:47 | Outpatient (BNVA) | payer OTHER, SELFPAY | PROVIDERS: Visit Provider Urology | DX: N39.0 Urinary tract infection, site not specified (principal); N20.0 Calculus of kidney | CPT/HCPCS: 99212 ==

== ENCOUNTER 2024-04-17 07:12 | Emergency (ER) | payer OTHER, SELFPAY ==
--- OUTSIDE RECORDS SUMMARY | 2024-04-17 07:14 | XMS_ITS | Continuity of Care Document ---
Author Organization [facility] vices Address [address] [place] [address] Phone Care Team Providers Care Body Former Name Role Phone Unavailable Unavailable Unavailable Allergies, Adverse Reactions, Alerts Substance Reaction Status Criticality No Known Allergies Active No Inform ation Medications Medication Instructions Dosage Effective Dates (start - stop) Status Comments ALBUTEROL SULFATE HFA (unknown strength) Not Available - Active Procedures Procedure Date REFRACTION EYE EXAM, NEW PATIENT OFFICE/OUTPATIENT VISIT, [facility] Advance Directives Directive Yes / No Effective Date File Name No Information Encounters Encounter Description Practice Location Reason(s) For Visit Diagnoses Date Provider Providers Copied on Encounter [facility], [address] [place], [place], [facility], tel:[phone] [facility] Optometry a comprehensive exam (chief complaint)a comprehensive exam (chief complaint) Myopia No Information OFFICE/OUTPA TIENT VISIT, [facility], [address] [place], [place], [facility], tel:[phone] [facility] Pediatrics est PCP (chief complaint) Encounter for administrativ e purpose Sylvain Boothe. [address] [facility], [id number] [address] [place] [address], [facility], . tel:[phone] Family History Family Member Type Diagnosis Age At Onset Problem (finding) Family history of hyper tension Problem (finding) Family history of diabetes mellitus type 1 Payers Payer name Insurance type Covered republican ID Authoriza tion(s) LYDIA Franco [id number] Social History Type Description Quantity Date Captured Comments Alcohol Use Details Unknown Caffeine Use Details Unknown Tobacco Use Status Never smoked tobacco 2014 Smoking Status Never smoker Non-Smoking Tobacco Use Details : No Details Available : No Details Available Sex Female Chief Complaint And Reason For Visit From encounter dated '11/14/2014 09:00'. a comprehensive exam (chief complaint). Description: The 9 years 7 months old female presents for evaluation of a comprehensive exam. VA is blurry. Pt JAREN was 2 yrs ago. Pt not seeing well out of current Rx.Denies any ocular dicomfort. a comprehensive exam (chief complaint) Reason For Referral Reason For Referral No Information History Of Present Illness Encounter Date Complaint History Of Prese nt Illness a comprehensive exam The 9 year s 7 months old female presents for evaluation of a comprehensive exam. VA is blurry. Pt JAREN was 2 yrs ago. Pt not seeing well out of current Rx.Denies any ocular dicomfort. est PCP Pt here to areli sen a new PCP. She was previously seen in [place], [facility] records not available today, mom will bring for PE. Per mom, pt has been healthy, no surgeries or hospitalizations. Intermittent asthma, uses albuterol prn but very infrequently, hasn't used in multiple months. She has no allergies and takes no current daily meds. She has been complaining over the past few months of lower abdominal cramping, headaches, low back pain. No menarche yet, mom was 12 when she started her period. No other concerns today Functional Status Date Functional Assessmen t No Information Instructions Date Instruction Additional Infor evangelina - Return in 1 year w jonnie Bolivar for Complete Exam Related to Myopia Assessments Type Assessment Date assessment Myopia Patient Care Teams Name Effective Dates (start - stop) Status Members No Information
[2024-04-17 07:22] VITALS: BP 119/73; PULSE 107; RESP 18; TEMP 36.7; O2SAT 97; BMI 27.5
--- OUTSIDE RECORDS SUMMARY | 2024-04-17 07:51 | XMS_ITS | Continuity of Care Document ---
Author Organization [facility] vices Address [address] [place] [address] Phone Care Team Providers Care Steel Pickler Name Role Phone Unavailable Unavailable Unavailable Allergies, Adverse Reactions, Alerts Substance Reaction Status Criticality No Known Allergies Active No Inform ation Medications Medication Instructions Dosage Effective Dates (start - stop) Status Comments ALBUTEROL SULFATE HFA (unknown strength) Not Available - Active Procedures Procedure Date REFRACTION EYE EXAM, NEW PATIENT OFFICE/OUTPATIENT VISIT, [facility] Advance Directives Directive Yes / No Effective Date File Name No Information Encounters Encounter Description Practice Location Reason(s) For Visit Diagnoses Date Provider Providers Copied on Encounter [facility], [address] [place], [place], [facility], tel:[phone] [facility] Optometry a comprehensive exam (chief complaint)a comprehensive exam (chief complaint) Myopia No Information OFFICE/OUTPA TIENT VISIT, [facility], [address] [place], [place], [facility], tel:[phone] [facility] Pediatrics est PCP (chief complaint) Encounter for administrativ e purpose Sylvain Boothe. [address] [facility], [id number] [address] [place] [address], [facility], . tel:[phone] Family History Family Member Type Diagnosis Age At Onset Problem (finding) Family history of hyper tension Problem (finding) Family history of diabetes mellitus type 1 Payers Payer name Insurance type Covered democrat ID Authoriza tion(s) LYDIA Franco [id number] Social History Type Description Quantity Date Captured [...] new PCP. She was previously seen in [place], [facility] records not available today, mom will bring [...]
[2024-04-17 07:55] LABS: MANUAL DIFF FLAG NO
[2024-04-17 07:59] LABS: Basophils Percent Auto 0.2 % (0-2); Eosinophils Percent Auto 0.5 % (0-4); Hematocrit 41.5 % (37.0-47.0); Hemoglobin 14.4 g/dl (12.0-16.0); Imm Gran Abs Auto 0.03 X10*3/uL (0.00-0.03); Imm Gran Pct Auto 0.4 % (0.0-0.4); Lymphocytes Absolute Auto 2.2 X10*3/uL (1.2-4.9); Lymphocytes Percent Auto 25.6 % (20-40); Mean Corpuscular HGB Conc 34.7 g/dl (31.0-35.0); Mean Corpuscular Hemoglobin 29.3 pg (27.0-33.0); Mean Corpuscular Volume 84.3 fL (80.0-98.0); Mean Platelet Volume 8.3 fL (9.4-12.3); Monocytes Absolute Auto 0.9 X10*3/uL (0.1-1.2); Monocytes Percent Auto 10.1 % (2-11); Neutrophils Absolute Auto 5.3 x10*3/uL (2.0-8.3); Neutrophils Percent Auto 63.2 % (45-73); Platelet Count 277 X10*3/uL (160-400); Red Blood Count 4.92 X10*6/uL (4.20-5.50); White Blood Count 8.4 X10*3/uL (4.8-10.8)
[2024-04-17 08:15] LABS: Appearance Urine Cloudy; Color Urine Yellow; Glucose Urine UA Negative (Negative); Leukocyte Esterase Urine Small (1+) (Negative); Nitrite Urine Negative (Negative); Specific Gravity - Urine >= 1.030 (1.005-1.025); UMIC TRIGGER UA YES; Urine Blood Negative (Negative); Urine Ketones Trace mg/dL (Negative); Urine Protein Trace mg/dL (Neg-Trace)
[2024-04-17 08:16] LABS: UPreg QC Valid YES; Urine Pregnancy NEGATIVE (NEGATIVE)
[2024-04-17 08:17] LABS: Anion Gap 14 (12-20); Blood Urea Nitrogen 11 mg/dL (9-16); Calcium 9.6 mg/dL (8.4-10.2); Carbon Dioxide 25 mmol/L (22-29); Chloride 104 mmol/L (96-108); Creatinine Clr Calc Pharmacy 120.6; Estimated Glomerular Filt Rate > 60; Glucose Random 92 mg/dL (60-115); Potassium 3.8 mmol/L (3.3-5.1); Sodium 139 mmol/L (135-145)
[2024-04-17 08:19] VITALS: BP 114/64; PULSE 68; RESP 16; O2SAT 98
[2024-04-17 08:20] LABS: Bacteria Urine Trace (None Seen); Hyaline Casts Urine 0-2 /LPF (0-2); RBC Urine 0-2 /HPF (0-2)
--- NOTE | 2024-04-17 08:51 | ED_ITS ---
HPI - Nausea/Vomiting/Diarrhea General Chief complaint: Nausea/Vomiting/Diarrhea Stated complaint: Vomiting/body pain Time Seen by Provider: 04/17/24 08:48 Source: patient Mode of arrival: ambulatory Limitations: no limitations History of Present Illness ED Provider: Dr. Jessee Saavedra HPI Narrative: 19-year-old female with a history of urinary tract infection and renal stones who presents emergency department for evaluation of nausea, vomiting, diarrhea, myalgias, arthralgias and weakness times 3 days. Patient states that she was had 5-6 episodes of vomiting and 5-6 episodes of diarrhea per day for the last 2 days. She denies any blood in the emesis or diarrhea. She states that she was not been able to eat or drink secondary to these symptoms. She states that she was had no vomiting or diarrhea today but has persistent nausea. She states she was feeling weak. She also states she has neck pain and pain in both of her arms that she describes as a nerve pain. Patient had subjective fever and chills at home. She was complaining of a headache as well. 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 Related Data Previous Rx's ?Medication ?Instructions ?Recorded naproxen 500 mg tablet 500 mg PO BID PRN pain 7 days #14 12/31/22 tabs oxybutynin chloride 5 mg tablet 5 mg PO BID PRN bladder spasms #14 12/31/22 tabs tamsulosin 0.4 mg capsule 0.4 mg PO BEDTIME 14 days #14 caps 12/31/22 naproxen 500 mg tablet 500 mg PO BID PRN pain 7 days #14 01/10/23 tabs phenazopyridine 100 mg tablet 100 mg PO TID PRN Spasm 4 days #12 01/10/23 (Pyridium) tabs tamsulosin 0.4 mg capsule 0.4 mg PO BEDTIME 14 days #14 caps 01/10/23 tramadol 50 mg tablet 50 mg PO Q6H PRN pain (scale score 01/10/23 1-3) #8 tabs ofloxacin 0.3 % eye drops 1 drp ophthalmic (eye) QID 7 days 07/15/23 #5 mL acetaminophen 500 mg tablet 1,000 mg (2 x 500 mg) PO Q6H PRN 12/30/23 (Tylenol Extra Strength) fever or pain #20 tabs ibuprofen 400 mg tablet 400 mg PO TID PRN fever or pain 12/30/23 #30 tabs ondansetron 4 mg disintegrating 4 mg PO Q6-8H PRN nausea and 12/30/23 tablet vomiting #14 tabs nitrofurantoin macrocrystal 100 mg 100 mg PO BID 5 days #10 caps 01/04/24 capsule sulfamethoxazole 800 1 tab PO BID 14 days #28 tabs 01/05/24 mg-trimethoprim 160 mg tablet (Bactrim DS) ondansetron 4 mg disintegrating 4 mg PO Q6-8H PRN nausea and 04/17/24 tablet vomiting #14 tabs Allergies Allergy/AdvReac Type Severity Reaction Status Date / Time No Known Allergies Allergy Verified 04/17/24 07:25 [No Known Allergies*] Review of Systems 2 Review of Systems: Yes all other systems are reviewed and are negative [facility] Past Medical History [facility] Narrative: Social history: She denies tobacco and alcohol use. She does smoke marijuana 1-2 times per day. Medical History Irregular menses Dysmenorrhea Surgical History Hx of cystoscopy Family History Family History Mother Anxiety Depression PTSD (post-traumatic stress disorder) Social History Social History Household Members: Family Housing: House Do you presently have visiting nurse or other home services: No Alcohol intake: current Alcohol intake frequency: holidays/special occasions only Patient Tobacco Use Status: Current everyday Tobacco user Tobacco use type: Cigarette Cigarettes Per Day: 1 Substance Use Type: Marijuana Advance Directives: Yes Advance Directives Information Provided: Yes Advance Directives on File: No Do you have a plan to hurt others: No Plan Cognitive needs: No Hearing needs: No Vision needs: Yes Physical Exam 2 Vital Signs: Vital Signs: Last Vital Signs Temp 98.1 F 04/17/24 07:22 Pulse 69 04/17/24 10:10 Resp 16 04/17/24 10:10 BP 112/57 L 04/17/24 10:10 Pulse Ox 99 04/17/24 10:10 O2 Del Method Room Air 04/17/24 10:10 BMI result Body Mass Index 27.5 Vital signs were normal Exam: General: Awake, alert in no distress Head: Normocephalic, atraumatic EENT: PERRL, Lids normal, sclera normal, conjunctiva normal, nose normal , ears normal, throat without erythema or exudates Neck: Supple, she was able to move her head from [id number] in touch her chin to her chest without any difficulty, no adenopathy Lung: breath sounds symmetric, no wheezing, rales or rhonchi Chest: symmetric movement, nontender Heart: regular rate and rhythm, normal S1, S2 no murmurs or rubs Abdomen: soft, non-tender, nondistended, normal bowel sounds Back: no vertebral tenderness, no CVAT Extremities: no deformities, moves all extremities symmetrically Neuro: Awake, alert, oriented, normal speech, cranial nerves intact, moves all extremities symmetrically Psych: Pleasant, cooperative Medications Administered Discontinued Medications Generic Name Dose Route Start Last Admin Trade Name Freq PRN Reason Stop Dose Admin Sodium Chloride 1,000 mls @ 999 mls/hr 04/17/24 09:05 04/17/24 09:23 Ns IV 04/17/24 10:05 999 mls/hr .Q1H1M STA Administration Ketorolac Tromethamine 15 mg 04/17/24 09:05 04/17/24 09:22 Ketorolac Tromethamine 15 Mg/Ml Vial IVPUSH 04/17/24 09:06 15 mg ONCE STA Administration Ondansetron HCl 4 mg 04/17/24 09:05 04/17/24 09:22 Ondansetron Hcl 4 Mg/2 Ml Vial IVPUSH 04/17/24 09:06 4 mg ONCE ONE Administration Medical Decision Making Medical Decision Making MDM Narrative: 19-year-old female with a history of urinary tract infection and renal stones who presents emergency department for evaluation of nausea, vomiting, diarrhea, myalgias, arthralgias and weakness times 3 days. Patient has had 5-6 episodes of vomiting diarrhea per day with no blood in the emesis or diarrhea. Patient was had very poor oral intake secondary to her symptoms. Vital signs were normal. Physical examination was unremarkable, her neck is supple with no meningeal signs. Differential diagnosis: ?Includes but is not limited to gastroenteritis, viral syndrome, viral meningitis, anemia, electrolyte abnormalities, dehydration, COVID-19, influenza, RSV Following evaluation was ordered: CBC, BNP, LFTs, lipase, urinalysis, urine test, COVID-19, influenza, RSV Patient was initially treated with the following: Normal saline x1 L IV, Toradol 15 mg IV, Zofran 4 mg IV Course: Lab Data MDM Lab Attestation statement: I reviewed the patient's lab results. My independent interpretation patient's laboratory evaluation is as follows: CBC was normal. CMP was normal. 04/17/24 07:47 04/17/24 07:47 Labs: Lab Results 04/17/24 04/17/24 04/17/24 Range/Units 07:41 07:47 07:57 WBC 8.4 (4.8-10.8) X10*3/uL RBC 4.92 (4.20-5.50) X10*6/uL Hgb 14.4 (12.0-16.0) g/dl Hct 41.5 (37.0-47.0) % MCV 84.3 (80.0-98.0) fL MCH 29.3 (27.0-33.0) pg MCHC 34.7 (31.0-35.0) g/dl RDW 12.0 (11.0-16.0) % Plt Count 277 D (160-400) X10*3/uL MPV 8.3 L (9.4-12.3) fL Immature Gran % (Auto) 0.4 (0.0-0.4) % Neut % (Auto) 63.2 (45-73) % Lymph % (Auto) 25.6 (20-40) % [place] % (Auto) 10.1 (2-11) % Eos % (Auto) 0.5 (0-4) % Baso % (Auto) 0.2 (0-2) % Lymph # (Auto) 2.2 (1.2-4.9) X10*3/uL [place] # (Auto) 0.9 (0.1-1.2) X10*3/uL Eos # (Auto) 0.0 (0.0-0.4) X10*3/uL Baso # (Auto) 0.0 (0.0-0.2) X10*3/uL Abs Immat Gran (auto) 0.03 (0.00-0.03) X10*3/uL Absolute Neuts (auto) 5.3 (2.0-8.3) x10*3/uL Absolute Nucleated RBC 0.000 (0.0-0.012) X10*3/uL Nucleated RBC % (auto) 0.0 (0.0-0.2) /100WBC Sodium 139 (135-145) mmol/L Potassium 3.8 (3.3-5.1) mmol/L Chloride 104 (96-108) mmol/L Carbon Dioxide 25 (22-29) mmol/L Anion Gap 14 (12-20) BUN 11 (9-16) mg/dL Creatinine 0.72 (0.5-1.4) mg/dL Estim Creat Clear Calc 120.6 Estimated GFR > 60 Random Glucose 92 (60-115) mg/dL Calcium 9.6 (8.4-10.2) mg/dL Total Bilirubin 0.3 (0.0-1.0) mg/dL Direct Bilirubin 0.1 (0.0-0.5) mg/dL AST 24 (5-31) U/L ALT 12 (0-31) U/L Alkaline Phosphatase 73 (39-117) U/L Total Protein 7.6 (6.5-8.0) g/dL Albumin 4.2 (3.5-5.0) g/dL Lipase 17 (8-78) U/L Urine Color Yellow Urine Appearance Cloudy Urine pH 6.0 (5.0-9.0) Ur Specific [place] >= 1.030 H (1.005-1.025) Urine Protein Trace (Neg-Trace) mg/dL Urine Glucose (UA) Negative (Negative) mg/dL Urine Ketones Trace (Negative) mg/dL Urine Blood Negative (Negative) Urine Nitrite Negative (Negative) Ur Leukocyte Esterase Small (1+) H (Negative) Urine RBC 0-2 (0-2) /HPF Urine WBC 11-20 H (0-5) /HPF Ur Squamous Epith Cells 6-10 (0-2) /HPF Urine Bacteria Trace (None Seen) Hyaline Casts 0-2 (0-2) /LPF Urine Test NEGATIVE (NEGATIVE) Influenza Type A (PCR) NEGATIVE (Negative) Influenza Type B (PCR) NEGATIVE (Negative) RSV RNA Qual (PCR) NEGATIVE (Negative) SARS-CoV-2 RNA (RT-PCR) NEGATIVE (Negative) Discharge Plan Discharge Clinical Impression: Viral syndrome, Nausea & vomiting, Diarrhea, Acute dehydration Patient Disposition: Home, Self-Care Instructions: Viral Syndrome (ED) Additional Instructions: Your blood work was normal. Your COVID-19, influenza and RSV tests were negative. Your symptoms are consistent with a viral infection. Take Zofran ODT 4 mg pills, 1 pill dissolved in your mouth every 8 hours as needed for nausea and vomiting. For diarrhea I want you to take Imodium 2 mg pills. ?Take 2 pills after the 1st loose, diarrheal stool then 1 pill after each loose, diarrheal stool up to 8 pills per day. ?This usually stops diarrhea within 24 hours. Take ibuprofen 200 mg pills, 2 pills every 6 hours as needed for pain or fever. Take Tylenol (acetaminophen) 500 mg pills, 2 pills every 6 hours as needed for pain or fever. For the next 24 hours, stay on a PRASAD diet (bananas, rice, applesauce, tea and toast). Follow-up with your doctor in 2 days. Please return to the emergency department if your symptoms get worse or if you develop any symptoms that are concerning to you. Please see work note Prescriptions: New ondansetron 4 mg tablet,disintegrating 4 mg PO Q6-8H PRN (Reason: nausea and vomiting) Qty: 14 0RF No Action tramadol 50 mg tablet 50 mg PO Q6H PRN (Reason: pain (scale score 1-3)) Qty: 8 0RF tamsulosin 0.4 mg capsule 0.4 mg PO BEDTIME 14 Days Qty: 14 0RF phenazopyridine [Pyridium] 100 mg tablet 100 mg PO TID PRN (Reason: Spasm) 4 Days Qty: 12 0RF naproxen 500 mg tablet 500 mg PO BID PRN (Reason: pain) 7 Days Qty: 14 0RF ofloxacin 0.3 % drops 1 drp ophthalmic (eye) QID 7 Days Qty: 5 0RF acetaminophen [Tylenol Extra Strength] 500 mg tablet 1,000 mg PO Q6H PRN (Reason: fever or pain) Qty: 20 0RF ibuprofen 400 mg tablet 400 mg PO TID PRN (Reason: fever or pain) Qty: 30 0RF ondansetron 4 mg tablet,disintegrating 4 mg PO Q6-8H PRN (Reason: nausea and vomiting) Qty: 14 0RF nitrofurantoin macrocrystal 100 mg capsule 100 mg PO BID 5 Days Qty: 10 0RF Rx Instructions: must administer with a meal/food tamsulosin 0.4 mg capsule 0.4 mg PO BEDTIME 14 Days Qty: 14 0RF oxybutynin chloride 5 mg tablet 5 mg PO BID PRN (Reason: bladder spasms) Qty: 14 0RF naproxen 500 mg tablet 500 mg PO BID PRN (Reason: pain) 7 Days Qty: 14 0RF sulfamethoxazole-trimethoprim [Bactrim DS] 800-160 mg tablet 1 tab PO BID 14 Days Qty: 28 0RF Stand Alone Forms: Work/School Release Print Language: Serbian
[2024-04-17 09:16] LABS: Influenza A PCR NEGATIVE (Negative); Influenza B PCR NEGATIVE (Negative); Resp Syncy Virus RNA Qual PCR NEGATIVE (Negative); SARS COV2 PCR INHOUSE NEGATIVE (Negative)
[2024-04-17] MEDS: ondansetron HCL 4 MG/2 ML VIAL IVPUSH (09:22)
[2024-04-17] MEDS: Ketorolac Tromethamine 15 MG/ML VIAL IVPUSH (09:22)
[2024-04-17] MEDS: 0.9 % Sodium Chloride 1,000 ML 999 ML IV (09:23)
[2024-04-17 09:33] LABS: Alanine Aminotransferase 12 U/L (0-31); Albumin Level 4.2 g/dL (3.5-5.0); Alkaline Phosphatase 73 U/L (39-117); Aspartate Amino Transferase 24 U/L (5-31); Bilirubin Direct 0.1 mg/dL (0.0-0.5); Bilirubin Total 0.3 mg/dL (0.0-1.0); Lipase 17 U/L (8-78); Total Protein 7.6 g/dL (6.5-8.0)
[2024-04-17 10:10] VITALS: BP 112/57; PULSE 69; RESP 16; O2SAT 99
--- NOTE | 2024-04-17 10:44 | PC.NURSE ---
Patient able to tolerate PO rick ciro and crackers
[2024-04-17 11:19] VITALS: BP 112/57; PULSE 69; RESP 16; TEMP 37.1; O2SAT 99
== END 2024-04-17 11:19 | disposition home or self-care (01) ==
PROVIDERS: Emergency Provider Emergency Medicine Emergency Medical Services
DX: B34.9 Viral infection, unspecified (principal); R11.2 Nausea with vomiting, unspecified; E86.0 Dehydration; M79.10 Myalgia, unspecified site; R53.1 Weakness; R50.9 Fever, unspecified; R51.9 Headache, unspecified; Z03.818 Encounter for observation for suspected exposure to other biological agents ruled out; Z79.899 Other long term (current) drug therapy
CPT/HCPCS: 0241U; 36415; 80048; 80076; 81001; 81025; 83690; 85025; 96361; 96374; 96375; 99284; J1885; J2405

== ENCOUNTER 2024-07-24 15:42 | Emergency (ER) | payer OTHER, SELFPAY ==
--- NOTE | ~2024-07-24 | XR_ITS ---
CLINICAL HISTORY: cough Single view of the chest. COMPARISON: None FINDINGS: Normal heart and mediastinal contours. No consolidation. No pleural effusion or pneumothorax. No fracture identified. IMPRESSION: 1. No consolidation. This document has been electronically signed by: Britton Kim MD on 07/24/2024 16:27:37
[2024-07-24 16:08] VITALS: BP 123/70; PULSE 82; RESP 18; TEMP 37.1; O2SAT 97; BMI 28.4
--- NOTE | 2024-07-24 16:10 | ED.GENADULT ---
HPI - General Adult General Chief complaint: Upper Respiratory Symptoms Stated complaint: flu symptoms Time Seen by Provider: 07/24/24 18:16 Source: patient Limitations: no limitations History of Present Illness ED Provider: Soha Berry PA-C HPI narrative: 19-year-old female who presents with cough and cold symptoms times 4 days. Associated cough, shortness of breath, right eye discharge nasal congestion, subjective fevers with chills at home. 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 Pt does wear conatcts. Related Data Previous Rx's ?Medication ?Instructions ?Recorded naproxen 500 mg tablet 500 mg PO BID PRN pain 7 days #14 12/31/22 tabs oxybutynin chloride 5 mg tablet 5 mg PO BID PRN bladder spasms #14 12/31/22 tabs tamsulosin 0.4 mg capsule 0.4 mg PO BEDTIME 14 days #14 caps 12/31/22 naproxen 500 mg tablet 500 mg PO BID PRN pain 7 days #14 01/10/23 tabs phenazopyridine 100 mg tablet 100 mg PO TID PRN Spasm 4 days #12 01/10/23 (Pyridium) tabs tamsulosin 0.4 mg capsule 0.4 mg PO BEDTIME 14 days #14 caps 01/10/23 tramadol 50 mg tablet 50 mg PO Q6H PRN pain (scale score 01/10/23 1-3) #8 tabs ofloxacin 0.3 % eye drops 1 drp ophthalmic (eye) QID 7 days 07/15/23 #5 mL acetaminophen 500 mg tablet 1,000 mg (2 x 500 mg) PO Q6H PRN 12/30/23 (Tylenol Extra Strength) fever or pain #20 tabs ibuprofen 400 mg tablet 400 mg PO TID PRN fever or pain 12/30/23 #30 tabs ondansetron 4 mg disintegrating 4 mg PO Q6-8H PRN nausea and 12/30/23 tablet vomiting #14 tabs nitrofurantoin macrocrystal 100 mg 100 mg PO BID 5 days #10 caps 01/04/24 capsule sulfamethoxazole 800 1 tab PO BID 14 days #28 tabs 01/05/24 mg-trimethoprim 160 mg tablet (Bactrim DS) ondansetron 4 mg disintegrating 4 mg PO Q6-8H PRN nausea and 04/17/24 tablet vomiting #14 tabs albuterol sulfate 90 mcg/actuation 2 puff inhalation Q4-6H PRN 07/24/24 aerosol inhaler shortness of breath or wheezing #6.7 grams ofloxacin 0.3 % eye drops 1 drp ophthalmic-Right QID #5 mL 07/24/24 Allergies Allergy/AdvReac Type Severity Reaction Status Date / Time No Known Allergies Allergy Verified 07/24/24 16:10 [No Known Allergies*] Review of Systems Review of Systems: Yes all other systems are reviewed and are negative Constitutional: Constitutional: Reports chills, Denies fatigue, Denies fever(s) and Reports malaise Eyes: Eyes: Reports eye discharge ENT: Reports nasal congestion Cardiovascular: Cardiovascular: Denies chest pain Respiratory: Respiratory: Reports cough Endocrine: Endocrine: Denies fatigue PMFSH Past Medical History Attestation statement: The following information was validated with the patient. Medical History Irregular menses Dysmenorrhea Surgical History Hx of cystoscopy Family History Family History Mother Anxiety Depression PTSD (post-traumatic stress disorder) Social History Social History Household Members: Family Housing: House Do you presently have visiting nurse or other home services: No Alcohol intake: current Alcohol intake frequency: holidays/special occasions only Patient Tobacco Use Status: Current everyday Tobacco user Tobacco use type: Cigarette Cigarettes Per Day: 1 Substance Use Type: Marijuana Advance Directives: No Advance Directives Information Provided: No Cognitive needs: No Hearing needs: No Vision needs: Yes Physical Exam ED Vital Signs: Vital Signs - 24 hr 07/24/24 16:08 Temperature 98.8 F Pulse Rate 82 Respiratory Rate 18 Blood Pressure 123/70 Pulse Oximetry 97 Oxygen Delivery Method Room Air BMI result Body Mass Index 28.4 Const Other: Alert Orientation/consciousness: patient oriented x3 Eyes Other: Right bulbar conjunctiva slightly injected, upper lid slightly swollen, dry discharge noted over lower lid Resp Other: No wheezing lungs clear, active dry cough at times Effort & Inspection: normal respiratory effort Cardio Other: Normal peripheral perfusion Skin Other: Warm general rash Neuro General: patient oriented x3, gait normal, no focal motor deficits and CN's II-XI intact bilaterally Psych Other: Cooperative Course Course Course Narrative: This is a rapid medical exam performed by Soha Berry PA-C. Patient is a 19-year-old female who presents with cough and cold symptoms times 4 days. Associated cough, shortness of breath, right eye discharge nasal congestion, subjective fevers with chills at home. 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 On exam her lungs are clear, she is stable she is not currently febrile her oxygenation is appropriate. We will be obtaining a chest x-ray and a viral panel. The patient can return to the waiting room pending her full medical assessment. Medical Decision Making Medical Decision Making MDM Narrative: 19-year-old female who presents with cough and cold symptoms times 4 days. Associated cough, shortness of breath, right eye discharge nasal congestion, subjective fevers with chills at home. 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 Pt does wear conatcts. No chronic issues History: Per patient I have considered the following differential diagnoses: Viral syndrome, bronchitis, pneumonia, conjunctivitis Plan: Viral panel and chest x-ray obtained from triage, everything is negative. We will be treating the patient for bronchitis, she has been responding to the use of her significant other's inhaler. We will treat her conjunctivitis. She technically has risk factors for Pseudomonas, I have advised not to use her contact lenses. I have independently reviewed the following tests: Labs: Viral panel negative Chest x-ray:IMPRESSION: 1. No consolidation. Lab Data Labs: Lab Results 07/24/24 Range/Units 16:19 Influenza Type A (PCR) NEGATIVE (Negative) Influenza Type B (PCR) NEGATIVE (Negative) RSV RNA Qual (PCR) NEGATIVE (Negative) SARS-CoV-2 RNA (RT-PCR) NEGATIVE (Negative) Discharge Plan Discharge Clinical Impression: Acute viral syndrome, Bronchitis, Conjunctivitis Patient Disposition: Home, Self-Care Instructions: How to Use a Metered-Dose Inhaler (ED), Acute Bronchitis (ED), Viral Syndrome (ED), Conjunctivitis (ED) Additional Instructions: The viral panel was negative, you were screened for RSV, influenza and COVID. You do not have pneumonia on the chest x-ray. You are being treated for conjunctivitis, use the ofloxacin drops as directed. Use the inhaler as needed for your bronchospasm cough. Use [id number] ibuprofen and Tylenol for headache body ache and fever. Follow up with your primary care provider as needed. Prescriptions: New albuterol sulfate 90 mcg/actuation HFA aerosol inhaler 2 puff inhalation Q4-6H PRN (Reason: shortness of breath or wheezing) Qty: 6.7 0RF ofloxacin 0.3 % drops 1 drp ophthalmic-Right QID Qty: 5 0RF No Action tramadol 50 mg tablet 50 mg PO Q6H PRN (Reason: pain (scale score 1-3)) Qty: 8 0RF tamsulosin 0.4 mg capsule 0.4 mg PO BEDTIME 14 Days Qty: 14 0RF phenazopyridine [Pyridium] 100 mg tablet 100 mg PO TID PRN (Reason: Spasm) 4 Days Qty: 12 0RF naproxen 500 mg tablet 500 mg PO BID PRN (Reason: pain) 7 Days Qty: 14 0RF ofloxacin 0.3 % drops 1 drp ophthalmic (eye) QID 7 Days Qty: 5 0RF acetaminophen [Tylenol Extra Strength] 500 mg tablet 1,000 mg PO Q6H PRN (Reason: fever or pain) Qty: 20 0RF ibuprofen 400 mg tablet 400 mg PO TID PRN (Reason: fever or pain) Qty: 30 0RF ondansetron 4 mg tablet,disintegrating 4 mg PO Q6-8H PRN (Reason: nausea and vomiting) Qty: 14 0RF nitrofurantoin macrocrystal 100 mg capsule 100 mg PO BID 5 Days Qty: 10 0RF Rx Instructions: must administer with a meal/food ondansetron 4 mg tablet,disintegrating 4 mg PO Q6-8H PRN (Reason: nausea and vomiting) Qty: 14 0RF tamsulosin 0.4 mg capsule 0.4 mg PO BEDTIME 14 Days Qty: 14 0RF oxybutynin chloride 5 mg tablet 5 mg PO BID PRN (Reason: bladder spasms) Qty: 14 0RF naproxen 500 mg tablet 500 mg PO BID PRN (Reason: pain) 7 Days Qty: 14 0RF sulfamethoxazole-trimethoprim [Bactrim DS] 800-160 mg tablet 1 tab PO BID 14 Days Qty: 28 0RF Stand Alone Forms: Work/School Release Interventions: ED Discharge Assessment Last Done: 07/24/24 18:55 Print Language: [place]
[2024-07-24 17:10] LABS: Influenza A PCR NEGATIVE (Negative); Influenza B PCR NEGATIVE (Negative); Resp Syncy Virus RNA Qual PCR NEGATIVE (Negative); SARS COV2 PCR INHOUSE NEGATIVE (Negative)
[2024-07-24 18:55] VITALS: BP 123/70; PULSE 82; RESP 18; TEMP 37.1; O2SAT 97
== END 2024-07-24 19:06 | disposition home or self-care (01) ==
PROVIDERS: Physician Assistant Medical; Emergency Provider Internal Medicine
DX: J40 Bronchitis, not specified as acute or chronic (principal); H10.9 Unspecified conjunctivitis; B34.9 Viral infection, unspecified; R05.9 Cough, unspecified; R06.02 Shortness of breath; R09.81 Nasal congestion; H57.89 Other specified disorders of eye and adnexa
CPT/HCPCS: 0241U; 71045; 99282; 99283

== ENCOUNTER → 2024-07-24 16:08 | Outpatient (BNV) | payer SELFPAY | PROVIDERS: Visit Provider Radiology Diagnostic Radiology | DX: R05.9 Cough, unspecified (principal) | CPT/HCPCS: 71045 ==

== ENCOUNTER 2024-09-10 09:03 | Emergency (ER) | payer OTHER, SELFPAY ==
[2024-09-10 09:09] VITALS: BP 113/43; PULSE 61; RESP 18; TEMP 36.6; O2SAT 99
--- NOTE | 2024-09-10 10:32 | ED_ITS ---
HPI - General Adult General Chief complaint: Eye Problems Stated complaint: ? [facility] Time Seen by Provider: 09/10/24 10:28 Source: patient, RN notes reviewed and old records reviewed Mode of arrival: ambulatory Limitations: no limitations History of Present Illness ED Provider: Carrie [facility] narrative: Patient is a 19-year-old female presenting to the emergency department with comp laint of left eye redness and watery drainage, irritation since yesterday. States that her nephew accidentally poked her in the eye. Denies any purulent drainage, states eye was not crusted over when she woke this morning. Denies any URI symptoms. Normally wears contact lenses but took her contact out this morning due to symptoms. Denies vision changes, just reports some blurriness due to watery discharge. MD complaint: eye redness Onset (ago): day(s) Location: eyes Related Data Previous Rx's ?Medication ?Instructions ?Recorded naproxen 500 mg tablet 500 mg PO BID PRN pain 7 days #14 12/31/22 tabs oxybutynin chloride 5 mg tablet 5 mg PO BID PRN bladder spasms #14 12/31/22 tabs tamsulosin 0.4 mg capsule 0.4 mg PO BEDTIME 14 days #14 caps 12/31/22 naproxen 500 mg tablet 500 mg PO BID PRN pain 7 days #14 01/10/23 tabs phenazopyridine 100 mg tablet 100 mg PO TID PRN Spasm 4 days #12 01/10/23 (Pyridium) tabs tamsulosin 0.4 mg capsule 0.4 mg PO BEDTIME 14 days #14 caps 01/10/23 tramadol 50 mg tablet 50 mg PO Q6H PRN pain (scale score 01/10/23 1-3) #8 tabs ofloxacin 0.3 % eye drops 1 drp ophthalmic (eye) QID 7 days 07/15/23 #5 mL acetaminophen 500 mg tablet 1,000 mg (2 x 500 mg) PO Q6H PRN 12/30/23 (Tylenol Extra Strength) fever or pain #20 tabs ibuprofen 400 mg tablet 400 mg PO TID PRN fever or pain 12/30/23 #30 tabs ondansetron 4 mg disintegrating 4 mg PO Q6-8H PRN nausea and 08/30/24 tablet vomiting #14 tabs nitrofurantoin macrocrystal 100 mg 100 mg PO BID 5 days #10 caps 01/04/24 capsule sulfamethoxazole 800 1 tab PO BID 14 days #28 tabs 01/05/24 mg-trimethoprim 160 mg tablet (Bactrim DS) ondansetron 4 mg disintegrating 4 mg PO Q6-8H PRN nausea and 04/17/24 tablet vomiting #14 tabs albuterol sulfate 90 mcg/actuation 2 puff inhalation Q4-6H PRN 07/24/24 aerosol inhaler shortness of breath or wheezing #6.7 grams ofloxacin 0.3 % eye drops 1 drp ophthalmic-Right QID #5 mL 07/24/24 ofloxacin 0.3 % eye drops 2 drp ophthalmic (eye) QID 5 days 09/10/24 #5 mL Allergies Allergy/AdvReac Type Severity Reaction Status Date / Time No Known Allergies Allergy Verified 09/10/24 09:13 [No Known Allergies*] Review of Systems Review of Systems: As per HPI Yes all other systems are reviewed and are negative Constitutional: Constitutional: Reports as per HPI [facility] Past Medical History Medical History Irregular menses Dysmenorrhea Surgical History Hx of cystoscopy Family History Family History Mother Anxiety Depression PTSD (post-traumatic stress disorder) Social History Social History Household Members: Family Housing: House Do you presently have visiting nurse or other home services: No Alcohol intake: current Alcohol intake frequency: holidays/special occasions only Patient Tobacco Use Status: Current everyday Tobacco user Tobacco use type: Cigarette Cigarettes Per Day: 1 Substance Use Type: Marijuana Advance Directives: No Advance Directives Information Provided: Yes Do you have a plan to hurt others: No Plan Cognitive needs: No Hearing needs: No Vision needs: Yes Physical Exam ED Vital Signs: Vital Signs - 24 hr 09/10/24 09:09 09/10/24 10:41 Temperature 97.9 F 98.2 F Pulse Rate 61 68 Respiratory Rate 18 18 Blood Pressure 113/43 L 118/66 Pulse Oximetry 99 99 Oxygen Delivery Method Room Air Room Air BMI result Body Mass Index 30.0 Vital signs have been reviewed and appear to be correct. Blood pressure normal. Heart rate normal. Respiratory rate normal. Temperature normal. Oxygen saturation normal. Const General: cooperative, healthy appearing and no acute distress Orientation/consciousness: oriented to person, oriented to place, oriented to time and patient oriented x3 Limitations: no limitations HENMT Head: Yes normocephalic and Yes atraumatic Ears: external ears normal General nose exam: Normal external nose present Face and sinus: Yes face symmetric Mouth: oropharynx normal and moist mucous membranes Throat: Yes uvula midline Eyes Visual Correa: normal visual correa by confrontation Alignment and Position: alignment normal and position normal Conjunctivae: conjunctival abnormal left conjunctival injection diffuse Sclerae: sclerae normal Corneas: corneas abnormal on the left abrasion punctate; with no foreign body noted and fluorescein used Pupils: Equal, round and reactive pupils present EOM: EOMs intact bilaterally Neck Neck: Yes normal visual inspection and Yes supple Resp Effort & Inspection: normal respiratory effort and able to speak in complete sentences Auscultation: clear to auscultation bilaterally Cardio Rate: regular rate Rhythm: regular rhythm Heart sounds: S1 normal heart sound present and S2 normal heart sound present GI Palpation (GI): Soft to palpation and nontender Auscultation: normoactive bowel sounds General: Yes no CVA tenderness Back/Spine/Pelvis Back: no CVA tenderness Skin General skin exam: elasticity normal and turgor normal Neuro General: oriented to person, oriented to place, oriented to time, patient oriented x3, moves all extremities, no focal motor deficits and CN's II-XI intact bilaterally Cranial nerves: Yes Equal, round and reactive pupils present Cognition (Neuro): normal cognition Extrem General: Yes full ROM, Yes no pedal edema and Yes no calf tenderness Psych Mental Status: mental status grossly normal Affect: normal affect Thought process: Normal thought process present Medications Administered Discontinued Medications Generic Name Dose Route Start Last Admin Trade Name Freq PRN Reason Stop Dose Admin Fluorescein Sodium 1 strip 09/10/24 10:32 09/10/24 10:51 Fluorescein Sodium Strip EYE-LEFT 09/10/24 10:33 1 strip ONCE ONE Administration Medical Decision Making Medical Decision Making [facility] Narrative: Patient is a 19-year-old female presenting to the emergency department with complaint of left eye redness and watery drainage, irritation since yesterday. On exam patient is awake, A+Ox3, VS WNL, afebrile, normal neurological exam without focal deficits, physical exam findings as above. Given reported symptoms and physical exam findings, initial differential includes but is not limited to corneal abrasion, foreign body, conjunctivitis. Corneal abrasion noted on physical exam with Wood's lamp and fluorescein. Will treat with ofloxacin drops as patient uses contact lenses. Follow up with ophthalmology for ongoing symptoms. Return precautions discussed. Patient verbalized understanding of and agreement with plan. Differential Diagnosis Differential Diagnoses: The differential diagnosis associated with the presentation includes as per [facility] Admission/Observation Consideration of admission/observation: Escalation of care including admission/observation considered Patient would have been admitted to the hospital had their work up had any findings where hospital admission was appropriate and their clinical presentation warranted hospital admission. External Record Review External record reviewed: Inpatient record, Office record and Outpatient record Prescription Management I considered prescription management with: Antibiotic Discharge Plan Discharge Clinical Impression: Corneal abrasion Patient Disposition: Home, Self-Care Instructions: Corneal Abrasion (DC) Additional Instructions: You were evaluated in the emergency department today for eye redness and irritation. Your evaluation showed evidence of a corneal abrasion scratch to the surface of your eye. This will heal on its own over the next few days. You are being prescribed topical antibiotics to prevent infection. Avoid touching or rubbing your eyes. You should perform good hand hygiene/hand washing prior to and after touching your eyes or administering the medication. Follow-up with the jewelry bearing maker for any ongoing symptoms to the emergency department if you develop worsening redness, swelling, thick yellow drainage, changes in vision, or any other new or concerning symptoms. Prescriptions: New ofloxacin 0.3 % drops 2 drp ophthalmic (eye) QID 5 Days Qty: 5 0RF No Action tramadol 50 mg tablet 50 mg PO Q6H PRN (Reason: pain (scale score 1-3)) Qty: 8 0RF tamsulosin 0.4 mg capsule 0.4 mg PO BEDTIME 14 Days Qty: 14 0RF phenazopyridine [Pyridium] 100 mg tablet 100 mg PO TID PRN (Reason: Spasm) 4 Days Qty: 12 0RF naproxen 500 mg tablet 500 mg PO BID PRN (Reason: pain) 7 Days Qty: 14 0RF ofloxacin 0.3 % drops 1 drp ophthalmic (eye) QID 7 Days Qty: 5 0RF acetaminophen [Tylenol Extra Strength] 500 mg tablet 1,000 mg PO Q6H PRN (Reason: fever or pain) Qty: 20 0RF ibuprofen 400 mg tablet 400 mg PO TID PRN (Reason: fever or pain) Qty: 30 0RF ondansetron 4 mg tablet,disintegrating 4 mg PO Q6-8H PRN (Reason: nausea and vomiting) Qty: 14 0RF nitrofurantoin macrocrystal 100 mg capsule 100 mg PO BID 5 Days Qty: 10 0RF Rx Instructions: must administer with a meal/food ondansetron 4 mg tablet,disintegrating 4 mg PO Q6-8H PRN (Reason: nausea and vomiting) Qty: 14 0RF albuterol sulfate 90 mcg/actuation HFA aerosol inhaler 2 puff inhalation Q4-6H PRN (Reason: shortness of breath or wheezing) Qty: 6.7 0RF ofloxacin 0.3 % drops 1 drp ophthalmic-Right QID Qty: 5 0RF tamsulosin 0.4 mg capsule 0.4 mg PO BEDTIME 14 Days Qty: 14 0RF oxybutynin chloride 5 mg tablet 5 mg PO BID PRN (Reason: bladder spasms) Qty: 14 0RF naproxen 500 mg tablet 500 mg PO BID PRN (Reason: pain) 7 Days Qty: 14 0RF sulfamethoxazole-trimethoprim [Bactrim DS] 800-160 mg tablet 1 tab PO BID 14 Days Qty: 28 0RF Referrals: Simone Galeas [Physician] - 1 week Print Language: Armenian
[2024-09-10 10:41] VITALS: BP 118/66; PULSE 68; RESP 18; TEMP 36.8; O2SAT 99
[2024-09-10] MEDS: Fluorescein Sodium STRIP 1 STRIP EYE-LEFT (10:51)
[2024-09-10 11:11] VITALS: BP 118/66; PULSE 68; RESP 18; TEMP 36.8; O2SAT 99
--- OUTSIDE RECORDS SUMMARY | 2024-09-10 11:23 | XMS_ITS | Continuity of Care Document ---
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 Name Role Phone Unavailable Unavailable Unavailable Allergies, Adverse Reactions, Alerts Substance Reaction Status Criticality No Known Allergies Active No Inform ation Medications Medication Instructions Dosage Effective Dates (start - stop) Status Comments ALBUTEROL SULFATE HFA (unknown strength) Not Available - Active Procedures Procedure Date REFRACTION EYE EXAM, NEW PATIENT OFFICE/OUTPATIENT VISIT, [facility] Advance Directives Directive Yes / No Effective Date File Name No Information Encounters Encounter Description Practice Location Reason(s) For Visit Diagnoses Date Provider Providers Copied on Encounter [facility], [address], [place], [facility], tel:[phone] [facility] Optometry a comprehensive exam (chief complaint)a comprehensive exam (chief complaint) Myopia No Information OFFICE/OUTPA TIENT VISIT, [facility], [address], [place], [facility], tel:[phone] [facility] Pediatrics est PCP (chief complaint) Encounter for administrativ e purpose Sylvain Boothe. [address] [facility], [id number] [address] [place] [address], [facility], . tel:[phone] Family History Family Member Type Diagnosis Age At Onset Problem (finding) Family history of hyper tension Problem (finding) Family history of diabetes mellitus type 1 Payers Payer name Insurance type Covered alliance party ID Authoriza tion(s) LYDIA Franco [id number] Social History Type Description Quantity Date Captured [...] new PCP. She was previously seen in [place], [facility] records not available today, mom will [...]
== END 2024-09-10 11:11 | disposition home or self-care (01) ==
PROVIDERS: Emergency Provider Emergency Medicine Emergency Medical Services
DX: S05.02XA Injury of conjunctiva and corneal abrasion without foreign body, left eye, initial encounter (principal); W50.0XXA Accidental hit or strike by another person, initial encounter; F17.210 Nicotine dependence, cigarettes, uncomplicated; F12.90 Cannabis use, unspecified, uncomplicated; Y93.9 Activity, unspecified; Y92.9 Unspecified place or not applicable; Y99.9 Unspecified external cause status
CPT/HCPCS: 99283; 99284